=== PATIENT | male | born 1975 | race Caucasian/White ===

== ENCOUNTER → 2023-08-28 23:00 | Outpatient (CLI) | payer BC, SELFPAY | PROVIDERS: PCP Family Medicine; Visit Provider Family Medicine | DX: R52 Pain, unspecified (principal); U07.1 COVID-19 | CPT/HCPCS: 87635 ==

== ENCOUNTER 2025-04-02 14:18 | Outpatient (CLI) | payer BC, SELFPAY ==
--- OUTSIDE RECORDS SUMMARY | 2025-04-03 13:35 | XMS_ITS ---
Author Organization Unknown Medications Medication Instructions Effective Dates (start - stop) Status clindamycin 300 MG Oral Capsule [id number]:00:00.000+00:00 - Completed 24 HR bupropion hydrochlorid e 150 MG Extended Release Oral Tablet [id number]:00:00.00 0+00:00 - Completed Patient Care team information Name Category Status Period Participants - - Proposed period not known -
== END 2025-04-02 23:59 | disposition home or self-care (01) ==
LOC: LAB.DROPOF 04-03 13:32
PROVIDERS: PCP Family Medicine; Visit Provider Family Medicine
DX: R30.0 Dysuria (principal)
CPT/HCPCS: 87086

== ENCOUNTER 2025-04-07 08:16 | Emergency (ER) | payer BC, SELFPAY ==
[2025-04-07] VITALS (10 sets, daily range): BP systolic 114–144; BP diastolic 64–74; PULSE 68–87; RESP 14–20; TEMP 36.8; O2SAT 98–100; BMI 33.7
--- NOTE | 2025-04-07 08:22 | ED_ITS ---
Discharge Plan Disposition Patient Disposition: Home, Self-Care Condition: Good Prescriptions Prescriptions: No Action ciprofloxacin HCl 500 mg tablet 500 mg PO BID Qty: 30 0RF Referrals Follow up/Referrals: Brendan Castañeda MD [Primary Care Provider, Internal Medicine] - See instructions Activity Restrictions/Add. Instructions Additional Instructions/Restrictions: Your workup in the emergency department is unremarkable. You did have blood in your urine, therefore my suspicion is that you had a kidney stone. Continue to stay well-hydrated. Continue the antibiotics as you were prescribed. Return to the emergency department if you have any acute or worsening symptoms, unable to tolerate oral intake or if you have severe pain that returns or if you are unable to urinate. Otherwise follow-up with your primary care provider in 1 week. Clinical Impressions Clinical Impression: Acute flank pain, Syncope Instructions Patient Instructions: DI for Syncope in Adults (Fainting), DI for Syncope in Children (Fainting) Print Language Print Language: Khmer Discharge ED Provider: Jessenia Gastelum Adult HPI General Chief complaint: Syncope Stated complaint: Passed out,fever, back pain Time Seen by Provider: 04/07/25 08:22 History of Present Illness HPI narrative: Patient is a 50-year-old male with no significant past medical history who presented to the emergency department with an episode of syncope. Patient states that over the past week, he has had some flank pain. Patient states that his pain has been very uncomfortable in nature. Patient states the pain felt like he could not get comfortable. Patient states that he had some difficulty urinating this past week was seen by his primary care provider. Patient was initially on Bactrim which was then changed to ciprofloxacin. Patient states that during this week, he had an episode where he felt like he urinated a rock . Patient states that his urination improved significantly after this. Patient denies any history of kidney stones. Patient states that today he went outside to pee the patient states he had acute onset of flank pain that was crippling in nature. Patient states that then he had a syncopal episode. Patient denies any chest pain or shortness of breath prior. Patient states that his pain was gone when he woke up. Patient has not had any similar pain since this time. Patient states the pain was located in the left flank. And sharp in nature. Nonradiating. Patient denies any dysuria or frequency but did report difficulty urinating as noted above. Patient denies any cardiac history, patient does not take any daily medications, patient denies any significant prior surgical history. Patient denies any vomiting, diarrhea. Patient denies any headache, vision changes. Patient denies any other symptoms at this time. Related Data Previous Rx's ?Medication ?Instructions ?Recorded ciprofloxacin HCl 500 mg tablet 500 mg PO BID #30 tabs 04/03/25 Allergies Allergy/AdvReac Type Severity Reaction Status Date / Time cephalexin (From KEFLEX) Allergy Mild Verified 04/02/25 14:28 Penicillins (PENICILLINS) Allergy Mild Verified 04/02/25 14:28 brompheniramine (From Allergy Verified 04/02/25 14:28 Dimetapp DM Cold-Cough (PE)) dextromethorphan (From Allergy Verified 04/02/25 14:28 Dimetapp DM Cold-Cough (PE)) phenylephrine (From Dimetapp Allergy Verified 04/02/25 14:28 DM Cold-Cough (PE)) [facility] Disclaimer: The information contained in this section may have been updated after the patient was seen, as this information can be updated by other users. Medical History No significant past medical history Surgical History History of colonoscopy H/O knee surgery Family History Father Cancer Grandfather Cancer Heart attack Grandmother Stroke Social History (Updated 04/02/25 @ 14:30 by Leana Lam MA) Smoking Status: Current every day smoker tobacco type: cigarettes years smoked: 30 quit status: considering quitting alcohol intake: current alcohol intake frequency: a few times a week substance use type: denies use current occupational status: employed Travel in the last 8 weeks?: Inside the [place] caffeine: Yes Have you lived/traveled outside US in past 30 days?: No Contact w/someone who lives/traveled outside US past 30 days?: No Exposure to someone with infectious disease in past 14 days?: No Do you have a fever (greater than 100.4 F or 38 C)?: No Have you tested positive for COVID-19?: No Exposed to someone with COVID-19 in past 14 days?: No Do you have a sore throat?: No Do you have a cough?: No Do you have any weakness?: No Do you have any diarrhea?: No Are you experiencing any unusual bleeding?: No Do you have any muscle aches/pain?: No Do you have any abdominal pain?: No Are you experiencing loss of taste or smell?: No Other Medical History Have you received the Flu Vaccine for this season: No (Unknown, NA) Have you received the Pneumonia Vaccine: No ROS Obtained: Yes All systems reviewed & no additional complaints except as documented and Yes Systems reviewed as appropriate & no additional complaints except as documented Physical Exam General General appearance: alert and in no apparent distress Head Head exam: atraumatic, normocephalic and normal inspection Eye Eye exam: Present normal appearance, PERRL and EOMI; Absent scleral icterus ENT ENT exam: Present normal exam and normal external ear exam Neck Neck exam: Present normal inspection and full ROM Chest Chest inspection: Present normal inspection and symmetric chest wall rise Respiratory Respiratory exam: Present normal lung sounds bilaterally; Absent respiratory distress or wheezes Cardiovascular Cardiovascular exam: Present regular rate, normal rhythm and normal heart sounds Abdominal Exam Abdominal exam: Present soft and distention; Absent tenderness, guarding or rebound Comment: Left CVA tenderness Extremities Exam Extremities exam: Present normal inspection and full ROM Back Exam Back exam: Present normal inspection and full ROM Neurological Exam Neurological exam: Present alert and oriented X3 Psychiatric Psychiatric exam: Present normal affect and normal mood Skin Skin exam: Present warm and dry Medical Decision Making Medical Records Screening: Per USPSTF and CDC recommendations, given the prevalence of disease in our region, it is our hospital?s policy to screen for HIV and viral Hepatitis for all patients aged 18 and over and those with ongoing risk factors. Gerardo Inquiry Pt receiving controlled substance: No Vital Signs: 04/07/25 08:25 04/07/25 08:30 04/07/25 08:32 Temperature 98.2 F Temperature Source Oral Pulse Rate 77 78 Pulse Rate [Left] 87 Respiratory Rate 16 16 18 Blood Pressure 144/74 H 128/70 Blood Pressure [Right Arm] 144/74 H Blood Pressure Mean 102 89 Blood Pressure Mean [Right Arm] 97 Blood Pressure Source Blood Pressure Source [Right Arm] Automatic Cuff Blood Pressure Position 02 Sat by Pulse Oximetry 100 100 100 Oxygen Delivery Method Room Air 04/07/25 09:00 04/07/25 09:30 04/07/25 10:00 Temperature Temperature Source Pulse Rate 72 77 74 Pulse Rate [Left] Respiratory Rate 14 20 20 Blood Pressure 116/70 130/74 117/64 Blood Pressure [Right Arm] Blood Pressure Mean 85 92 Blood Pressure Mean [Right Arm] Blood Pressure Source Blood Pressure Source [Right Arm] Blood Pressure Position 02 Sat by Pulse Oximetry 100 99 100 Oxygen Delivery Method 04/07/25 10:30 04/07/25 11:00 04/07/25 11:30 Temperature Temperature Source Pulse Rate 74 71 68 Pulse Rate [Left] Respiratory Rate 18 18 20 Blood Pressure 123/74 114/68 114/68 Blood Pressure [Right Arm] Blood Pressure Mean 83 79 Blood Pressure Mean [Right Arm] Blood Pressure Source Blood Pressure Source [Right Arm] Blood Pressure Position 02 Sat by Pulse Oximetry 99 98 99 Oxygen Delivery Method 04/07/25 11:56 Temperature 98.3 F Temperature Source Oral Pulse Rate 68 Pulse Rate [Left] Respiratory Rate 20 Blood Pressure 114/68 Blood Pressure [Right Arm] Blood Pressure Mean Blood Pressure Mean [Right Arm] Blood Pressure Source Automatic Cuff Blood Pressure Source [Right Arm] Blood Pressure Position Sitting 02 Sat by Pulse Oximetry Oxygen Delivery Method Room Air Lab Data Lab results reviewed: Yes I reviewed the patient's lab results. Lab Results 04/07/25 08:30: HCV Ab JEWELL w/Rflx PCR Qn Negative, HIV Ag/Ab Combo Qual Negative 04/07/25 08:36: WBC 2.5 L, RBC 4.53 L, Hgb 14.1, Hct 42.3, MCV 93.4, MCH 31.1, MCHC 33.3, RDW 13.2, Plt Count 94 L, MPV 11.9 H, Neut % (Auto) 58.0, Lymph % (Auto) 30.6, [place] % (Auto) 9.0, Eos % (Auto) 1.6, Baso % (Auto) 0.4, Neut # (Auto) 1.4 L, Lymph # (Auto) 0.8, [place] # (Auto) 0.2, Eos # (Auto) 0.0, Baso # (Auto) 0.0, Sodium 139, Potassium 4.4, Chloride 103, Carbon Dioxide 26, Anion Gap 14.4, BUN 13, Creatinine 1.00, Estimated Creat Clear 155, Estimated GFR 79, Est GFR ( Amer) 96, Glucose 198 H, Calcium 9.0, Total Bilirubin 0.5, AST 66 H, ALT 61, Alkaline Phosphatase 71, Troponin I < 0.01, Total Protein 6.8, Albumin 3.8, Globulin 3.0, Albumin/Globulin Ratio 1.3 04/07/25 11:19: Urine Color Yellow, Urine Appearance Clear, Urine pH 5.5, Ur Specific [place] >= 1.030, Urine Protein 1+ A, Urine Glucose (UA) Negative, Urine Ketones Negative, Urine Blood 2+ A, Urine Nitrate Negative, Urine Bilirubin Negative, Urine Urobilinogen 0.2, Ur Leukocyte Esterase Negative, Urine RBC 5-10, Urine WBC 5-10, Ur Squamous Epith Cells Occasional, Urine Bacteria 1+, Urine Mucus 1+ 04/07/25 08:36 04/07/25 08:36 Orders (Tests/Meds): ED MEDICATIONS Discontinued Medications Generic Name Dose Route Start Last Admin Trade Name Freq PRN Reason Stop Dose Admin Acetaminophen 1,000 mg 04/07/25 10:24 04/07/25 10:31 Acetaminophen 500mg Tab PO 04/07/25 10:25 1,000 mg ONCE ONE Administration Sodium Chloride 1,000 mls @ 999 mls/hr 04/07/25 09:00 04/07/25 09:15 Sod Chlor 0.9% 1000ml Bag IV 04/07/25 10:00 999 mls/hr .Q1H1M DYAN Administration Ketorolac Tromethamine 30 mg 04/07/25 08:53 04/07/25 10:30 Ketorolac 30mg/Ml Vial IV 04/12/25 08:52 30 mg Q6HP PRN Administration Moderate Pain (4-6) Ondansetron HCl 4 mg 04/07/25 08:53 04/07/25 10:30 Ondansetron 4mg/2ml Vial IV 05/07/25 08:52 4 mg Q6HP PRN Administration Nausea ORDERS Category Date Time Status CT abdomen pelvis wo con Stat Cat Scan 04/07/25 08:53 Completed CBC w/Auto Diff [Complete Blood Count Auto Diff] Stat Lab 04/07/25 08:36 Completed CMP [Comprehensive Metabolic Panel] Stat Lab 04/07/25 08:36 Completed HIV Combo Stat Lab 04/07/25 08:30 Completed Hepatitis C Ab Qual. W/ RFX Stat Lab 04/07/25 08:30 Completed Trop I [Troponin I] Stat Lab 04/07/25 08:36 Completed Urinalysis and Microscopic Routine Lab 04/07/25 11:19 Completed Medical Decision Narrative: Patient is a 50-year-old gentleman with no significant past medical history who presented to the emergency department with an episode of syncope. On exam, patient was hemodynamically stable with unremarkable vital signs. Differential includes but not limited to: Pyelonephritis, urinary tract infection, nephrolithiasis, musculoskeletal spasm, ACS/TX, arrhythmia, amongst others.Patient's workup was reviewed and interpreted by myself, CBC showed no leukocytosis, hemoglobin was stable. Patient's chemistry was unremarkable. Patient's UA had blood, 5-10 white blood cells 1+ bacteria. Patient CT abdomen pelvis was reviewed and interpreted by myself and showed no evidence of nephrolithiasis, no other obstructive pathology. No other acute findings. Patient remained pain-free in the emergency department, patient had received Toradol, IV fluids. At this time, my suspicion is patient likely had a kidney stone. Patient's initial troponin was less than 0.01, EKG was reviewed and interpreted by myself and showed normal sinus rhythm without acute ST or T wave changes concerning for ischemia. At this time, I felt that patient was appropriate for discharge home. Patient was recommended to continue taking the ciprofloxacin as prescribed patient was otherwise discharged home in stable condition. Critical Care Critical Care Time Critical Care Time: No
--- NOTE | 2025-04-07 08:26 | ECG_ITS ---
APPROVED REPORT Exam: Resting ECG HR:79 bpm ECG Measurements Heart Rate 79 AXES FL 171 P 49 QRSd 82 QRS 40 QT 350 T 29 QTc 384 Conclusion Normal sinus rhythm without acute ST or T wave changes concerning for ischemia Electronically signed by : Jessenia Gastelum, 04/07/2025 17:57:36
--- OUTSIDE RECORDS SUMMARY | 2025-04-07 08:33 | XMS_ITS | Data Portability ---
Author Organization [facility] [place], [facility] [place] Address [address] [place] [address] Assessment No assessment recorded. Plan of Treatment Reminders Order Date Submit Date Provider Last Modified By Organization Details Last Modified Time Details Appointments None recorded. Lab semen analysis 2022 023 [facility] (Lab Registration) , [address] [place] [address] [place], [address], 07:08:40 Referral None recorded. Procedures None recorded. Surgeries None recorded. Imaging None recorded. Medication Orders None recorded. Patient TargetsNo targets recorded. Patient InstructionsNo instructions recorded. Reason for Referral None Reported. Procedures Surgical History Date Name Laterality Status Provider Name and Address Organization Details Recorded Time 04/21/2023 Vasectomy completed Tushar Rivas Jr, MD [address] [place] [address], [address], [place], [address], [facility] & [place] 04/21/2023 09:01:29 vasectomy completed Karina Oakley [facility] [place] 06/01/2023 09:11:26 Imaging Results None recorded. Procedure Notes None recorded. Medical Equipment None Reported. Medications Name Sig Start Date Stop Date Status Note LastModified by Organization Details LastModified Time clindamycin HCl 300 mg capsule active Not Available Not Availab le Not Available amoxicillin 875 mg tablet active Not Available Not Available No t Available methylprednisolo ne 4 mg tablets in a dose pack active Not Available Not Availab le Not Available bupropion HCl XL 150 mg 24 hr tablet, extended release 03/10 completed Not Available Not Available Not Available Vitals Date Recorded Body height Body temperature Provider N melchor and Address Organization Details Last Updated DateTime 03/10/2023 190.5 cm 98.2 [degF] [facility] [place] 03/10/2023 13:51:02 Date Recorded Body height Body temperature Provider N melchor and Address Organization Details Last Updated DateTime 06/01/2023 190.5 cm 97 [degF] Karina ELY [facility] [place] 06/01/2023 09:11:03 Date Recorded Body height Provider Name an d Address Organization Details Last Updated DateTime 06/15/2023 190.5 cm Karina ELY [facility] [place] 06/15/2023 08:55:27 Social History None recorded. Functional Status None recorded. Mental Status None recorded. Family History Relationship Description Onset Age of this Age Resolved Age Notes LastModified by Organization Details LastModified Time Father No current problems or disability [email or web address] Not available 03/10 13:52:19 Mother No current problems or disability [email or web address] Not available 03/10 13:52:19 Medical History No medical history recorded. Past Encounters Encounter ID Performer Location Encounter Start Date Encounter Closed Date Diagnosis/Indication Diagnosis SNOMED-CT Code Diagnosis ICD10 Code Diagnosis Note [id number] Tushar Rivas Jr, MD [facility] [address] [id number] 03/10/2023 13:45:27 03/10/2023 14:31:10 Counseling for elective sterilization done 6269149903 37545 Z30.2 48-year-ol d white male here for vasectomy consultati on today. We discussed the operative procedure and complicati ons. Patient would like to proceed under local anesthetic . We discussed that he is not considered sterile until he brings his back 2 semen samples. [id number] Tushar Rivas Jr, MD [facility] [address] [place] [phone] 04/21/2023 07:55:18 04/21/2023 13:12:41 Sterilization procedure [id number] Z30.2 patient underwent local vasectomy today without complicati on. Tolerated well discharged home with routine instructio ns and medication s. To return in 6 weeks with a semen sample. [id number] Tushar Rivas Jr, MD [facility] [address] [facility] [place] [id number] 06/01/2023 09:08:51 06/23/2023 14:05:59 History of vasectomy [id number] Z98.52 semen analysis today was without sperm. Patient notified. 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 No evidence of sperm were noted. Patient notified. Health Concerns Section Related Observation LastModified by Organization Detai ls LastModified Time None Recorded Concern Status LastModified by Organization Details LastModified Time None Recorded Advance Directives Directive None Recorded Payers Insurance Date Sequence Insurance Name Policy Number Policy Gramajo Covered Member ID Gramajo Member ID Guarantor Name 04/13/2024 1 [place]: [facility] [id number] 1 Andres Acosta [id number] Andres Acosta Notes Date Note Type Note Provider Name and Address Organization Details Recorded Time 03/10/2023 text/html Patient is a 48-year-old white male self-referred for vasectomy consultation. Patient states he has 5 children. He and his have discussed sterility options and have agreed upon vasectomy as their method of choice. Patient read through the vasectomy materials today. He denies any testicular abnormalities or scrotal trauma. Tushar Rivas Jr, MD [address] [place] [address], [address], [place], [address], [place] [facility] [place] 03/10/2023 14:44:05 04/21/2023 text/html Patient is 48-year-old white male who presents for his vasectomy today. Second consultation previously performed here in the office. Tushar Rivas Jr, MD [address] [place] [address], [address], [place], [address], [place] [facility] [place] 04/21/2023 09:02:16 06/01/2023 text/html patient status p ost vasectomy April 21 returns for semen analysis. He denies any problems. Tushar Rivas Jr, MD [address] [place] [address], [address], [place], [address], [place] [facility] [place] 06/23/2023 14:05:59 06/15/2023 text/html Patient dropped off a specimen today post vasectomy. Tushar Rivas Jr, MD [address] [facility], [address], [place], [address], [place] [facility] [place] 06/15/2023 12:32:30
--- OUTSIDE RECORDS SUMMARY | 2025-04-07 08:33 | XMS_ITS ---
Author Organization Unknown Medications Medication Instructions Effective Dates (start - stop) Status clindamycin 300 MG Oral Capsule 7860-85-42E40:00:00.000+00:00 - Completed 24 HR bupropion hydrochlorid e 150 MG Extended Release Oral Tablet [id number]:00:00.00 0+00:00 - Completed Patient Care team information Name Category Status Period Participants - - Proposed period not known -
--- NOTE | 2025-04-07 08:53 | CT_ITS ---
FINAL REPORT TECHNIQUE: Noncontrast CT exam of the abdomen and pelvis. This study was performed with techniques to keep radiation doses as low as reasonably achievable (ALARA). Individualized dose reduction techniques using automated exposure control or adjustment of mA and/or kV according to the patient's size were employed. CLINICAL HISTORY: evaluate for kidney stones COMPARISON: None FINDINGS: Abdomen: Lung bases are clear. Fatty infiltration of the liver is present. There is moderate splenomegaly, the spleen measuring up to 17.6 cm in craniocaudal dimension. The pancreas and adrenal glands are unremarkable. The bowel is unremarkable. The kidneys show no stone disease or obstruction. No obvious renal mass is present. No ureteral stones are present. Pelvis: No distal ureteral stones are seen. Bladder is unremarkable. No fluid collection or adenopathy is seen. The appendix is unremarkable in appearance. IMPRESSION: 1. No evidence of upper urinary tract stone disease or obstruction 2. Moderate splenomegaly. Reviewed, Interpreted and Dictated by Shruthi España MD Transcribed by Diane Vasquez Authenticated and . [facility]
[2025-04-07 09:08] LABS: Alanine Aminotransferase 61 U/L (12-78); Albumin Level 3.8 g/dl (3.5-5.0); Albumin/Globulin Ratio 1.3 (1.1-1.8); Alkaline Phosphatase 71 U/L (38-126); Anion Gap 14.4 mEq/L (5-15); Aspartate Amino Transferase 66 U/L (17-59); Bilirubin,Total 0.5 mg/dl (0.2-1.3); Blood Urea Nitrogen 13 mg/dl (9-20); Calcium 9.0 mg/dl (8.4-10.2); Carbon Dioxide 26 mmol/L (22.0-30.0); Chloride 103 mmol/L (98-107); Creatinine Clearance Estimated 155 mL/min (50-200); Creatinine,Serum 1.00 mg/dl (0.66-1.25); Estimated Glomerular Filt Rate 79 ml/min (>60); GFR (African American) 96 ML/MIN (>60); Globulin 3.0 g/dL (1.3-3.2); Glucose 198 mg/dl (74-100); Hematocrit 42.3 % (42.0-52.0); Hemoglobin 14.1 g/dL (14.1-18.0); Immature Granulocytes % 0.4 %; Mean Corpuscular HGB Conc 33.3 g/dL (31.8-35.4); Mean Corpuscular Hemoglobin 31.1 pg (27.0-31.2); Mean Corpuscular Volume 93.4 fl (80-94); Nucleated Red Blood Cells % 0 %; Platelet Count 94 K/mm3 (142-424); Potassium 4.4 mmoL/L (3.5-5.1); Red Blood Count 4.53 M/mm3 (4.60-6.20); Red Cell Distribution Width-SD 44.9 fL; Sodium 139 mmol/L (136-145); Total Protein,Serum 6.8 g/dl (6.3-8.2); White Blood Count 2.5 K/mm3 (4.8-10.8)
[2025-04-07] MEDS: 0.9 % SODIUM CHLORIDE 1000ML 1,000 ML 999 ML IV (09:15)
[2025-04-07 09:22] LABS: Troponin I < 0.01 ng/ml (0.00-0.034)
[2025-04-07 10:23] LABS: Hepatitis C Ab Qual. W/ RFX NEGATIVE (Negative)
[2025-04-07] MEDS: KETOROLAC 30MG/ML VIAL 30 MG IV (10:30)
[2025-04-07] MEDS: ONDANSETRON 4MG/2ML VIAL 4 MG IV (10:30)
[2025-04-07] MEDS: ACETAMINOPHEN 500MG TAB 1000 MG PO (10:31)
[2025-04-07 11:23] LABS: Microscopic, Urine URINE MICROSCOPIC (MICROSCOPIC)
[2025-04-07 11:34] LABS: Bilirubin,Urine Negative (Negative); Color,Urine YELLOW (Yellow); Glucose,Urine (UA) Negative (Negative); Ketones,Urine Negative (Negative); Leukocyte Esterase,Urine Negative (Negative); PH,Urine 5.5 (5.0-8.5); Protein,Urine 1+ (Negative); Specific Gravity, Urine >= 1.030 (1.005-1.030); Urobilinogen,Urine 0.2 EU/dl (0.2)
[2025-04-07 11:49] LABS: Bacteria,Urine 1+ /lpf; Mucus,Urine 1+ /lpf; Squamous Epithelial Cell,Urine Occasional #/hpf (0-5)
== END 2025-04-07 12:08 | disposition home or self-care (01) ==
PROVIDERS: Emergency Provider Student in an Organized Health Care Education/Training Program; PCP Family Medicine
DX: R10.32 Left lower quadrant pain (principal); M54.59 Other low back pain; R55 Syncope and collapse; F17.210 Nicotine dependence, cigarettes, uncomplicated
CPT/HCPCS: 74176; 80053; 81001; 84484; 85025; 86803; 87389; 93005; 96361; 96374; 96375; 99285; J1885; J2405; J7030

== ENCOUNTER 2025-05-19 09:06 | Outpatient (CLI) | payer BC, SELFPAY ==
[2025-05-19 20:41] LABS: Prostate Specific Ag, Diagnost 0.652 ng/ml (0.0-4.0)
== END 2025-05-19 23:59 | disposition home or self-care (01) ==
LOC: LAB.DROPOF 05-21 10:21
PROVIDERS: PCP Family Medicine; Visit Provider Family Medicine
DX: N41.9 Inflammatory disease of prostate, unspecified (principal)
CPT/HCPCS: 84153

== ENCOUNTER 2025-06-04 07:36 | Outpatient (CLI) | payer BC, SELFPAY ==
--- NOTE | 2025-06-04 08:00 | US_ITS ---
FINAL REPORT TECHNIQUE: Sonographic images of the right upper quadrant were obtained. CLINICAL HISTORY: RUQ pain FINDINGS: PANCREAS: Obscured. LIVER: Fatty infiltrated. No focal hepatic lesion. No intrahepatic biliary ductal dilatation. The portal vein is patent. GALLBLADDER: No gallstones. No gallbladder wall thickening or pericholecystic fluid. COMMON DUCT: 3 mm. Normal for age. RIGHT KIDNEY: The right kidney measures 10.2 cm. There is no hydronephrosis. There is a slightly hyperechoic lesion in the mid right kidney measuring 2.9 cm, mass is not excluded.. FREE FLUID: None. IMPRESSION: Hyperechoic lesion in the right kidney, mass is not excluded. Consider renal mass protocol CT. Reviewed, Interpreted and Dictated by Emi Jones MD Transcribed by Mary Grace Sol Authenticated and [facility]
== END 2025-06-04 23:59 | disposition home or self-care (01) ==
LOC: RAD 07:37
PROVIDERS: PCP Family Medicine; Visit Provider Family Medicine
DX: R93.421 Abnormal radiologic findings on diagnostic imaging of right kidney (principal); R10.11 Right upper quadrant pain
CPT/HCPCS: 76705

== ENCOUNTER 2025-06-23 06:37 | Outpatient (CLI) | payer BC, SELFPAY ==
--- NOTE | 2025-06-23 07:00 | NM_ITS ---
FINAL REPORT CLINICAL HISTORY: abdominal pain 7:00 am 8.46 mci tc choletec 2.3 mcg of cck injected into tl ant no pain during cck COMPARISON: None FINDINGS: Sequential anterior projection images of the abdomen were obtained after the intravenous injection of 8.46 mCi technetium 99m Choletec. There is normal uptake of radiotracer by the liver. The bile ducts are visualized by 5 minutes. Gallbladder activity is seen by 20 minutes. Bowel activity is noted by 20 minutes. After 1 hour, 2.3 ?g of CCK was injected intravenously for calculation of gallbladder ejection fraction. The gallbladder ejection fraction is 63%, which is within normal limits. IMPRESSION: No evidence of cystic duct or bile duct obstruction. Normal gallbladder ejection fraction of 63%. Reviewed, Interpreted and Dictated by Varun Kirkpatrick MD Transcribed by Diane Vasquez Authenticated and [facility]
[2025-06-23] MEDS: SINCALIDE IV (09:35)
[2025-06-23] MEDS: SODIUM CHLORIDE 0.9% IV (09:35)
[2025-06-23] MEDS: SODIUM CHLORIDE 0.9% 10ML SYR (RAD ONLY) 10 ML IV (09:36)
[2025-06-23] MEDS: ISOTOPE CHOLETECH;1 DOSE (UP TO 15 MCI) IV (09:36)
== END 2025-06-23 23:59 | disposition home or self-care (01) ==
PROVIDERS: PCP Family Medicine; Visit Provider Family Medicine
DX: R10.9 Unspecified abdominal pain (principal)
CPT/HCPCS: 78227; A9537; J2805

== ENCOUNTER 2025-06-27 07:39 | Outpatient (CLI) | payer BC, SELFPAY ==
--- NOTE | 2025-06-27 08:00 | CT_ITS ---
FINAL REPORT TECHNIQUE: Pre- and postcontrast images of the abdomen were performed by computed tomography. Reconstructed images were obtained and reviewed. This study was performed with techniques to keep radiation doses as low as reasonably achievable, (ALARA). Individualized dose reduction techniques using automated exposure control or adjustment of mA and/or kV according to the patient's size were employed. CLINICAL HISTORY: lesion right kidney FINDINGS: On the precontrast images, there is moderate diffuse fatty infiltration of the liver. The liver is enlarged measuring 22 cm in craniocaudal dimension. The spleen is enlarged measuring 17 cm in craniocaudal dimension. The lung bases are clear. The adrenals are normal. The pancreas is unremarkable. The kidneys enhance appropriately. No renal mass is identified. The appendix is normal. IMPRESSION: Hepatosplenomegaly. No renal lesions identified. Reviewed, Interpreted and Dictated by Varun Kirkpatrick MD Transcribed by Mary Grace Sol Authenticated and [facility]
[2025-06-27] MEDS: IOPAMIDOL-370 (76%);100ML BOTTLE 75 ML IV (08:01)
[2025-06-27] MEDS: SODIUM CHLORIDE 0.9% 10ML SYR (RAD ONLY) 10 ML IV (08:01)
== END 2025-06-27 23:59 | disposition home or self-care (01) ==
PROVIDERS: PCP Family Medicine; Visit Provider Family Medicine
DX: R16.2 Hepatomegaly with splenomegaly, not elsewhere classified (principal); N28.9 Disorder of kidney and ureter, unspecified; R10.9 Unspecified abdominal pain
CPT/HCPCS: 74170; Q9967